=== PATIENT | male | born 1960 | race Caucasian/White ===

== ENCOUNTER → 2018-01-19 11:22 | Outpatient (CLI) | payer MEDICARE, SELFPAY ==
[2018-01-19 13:39] LABS: Bacteria Urine None Seen; RBC Urine None Seen (0-5/HPF); WBC Urine None Seen (0-5/HPF)
[2018-01-19 14:24] LABS: Appearance Urine UA CLEAR; Bilirubin Urine UA NEGATIVE (NEGATIVE); Color Urine UA YELLOW; Glucose Urine UA NEGATIVE (Normal); Ketones Urine UA NEGATIVE (NEGATIVE); Leukocyte Esterase Urine UA NEGATIVE (NEGATIVE); Nitrite Urine UA Negative (Negative); Occult Blood Urine UA NEGATIVE (Negative); Protein Urine UA 1+ (Negative); Urobilinogen Urine UA 0.2 E.U./dL (0.2); pH Urine UA 5.5 (4.5-8.0)
[2018-01-19 14:40] LABS: Culture Indicated Urine Cult Not Indicated; Urine Comments Microscopic Normal
== END ==
PROVIDERS: Family Provider Family Medicine; PCP Family Medicine; Visit Provider Internal Medicine
DX: R30.0 Dysuria (principal)
CPT/HCPCS: 81001

== ENCOUNTER → 2018-02-01 08:55 | Outpatient (CLI) | payer MEDICARE, SELFPAY ==
[2018-02-01 14:00] LABS: Creatinine Urine Random 107.2 mg/dL
[2018-02-01 14:04] LABS: Microalbumi Creatinin Ratio Ur 85.8 ug/mg CR (<30); Microalbumin Urine Random 9.2 mg/dL (0-1.6)
== END ==
PROVIDERS: Family Provider Family Medicine; PCP Family Medicine; Visit Provider Internal Medicine
DX: R30.0 Dysuria (principal)
CPT/HCPCS: 82043; 82570

== ENCOUNTER → 2018-05-22 12:09 | Outpatient (CLI) | payer MEDICARE, SELFPAY ==
[2018-05-22 12:41] LABS: Add Manual Diff / Slide Review NO; Alanine Aminotransferase 22 IU/L (21-72); Albumin 4.6 g/dL (3.5-5.0); Albumin Globulin Ratio 1.5 (1.0-2.8); Alkaline Phosphatase 65 U/L (38-126); Aspartate Aminotransferase 20 IU/L (17-59); BUN Creatinine Ratio 15.5 (6-22); Basophils Absolute Auto 100 /uL (0-100); Basophils Percent Auto 1.2 % (0-2); Bilirubin Total 0.9 mg/dL (0.2-1.3); Blood Urea Nitrogen 17 mg/dL (9-20); Calcium 9.2 mg/dL (8.4-10.2); Carbon Dioxide 26 mmol/L (22-32); Chloride 106 mmol/L (98-107); Cholesterol 169 mg/dL (140-199); Eosinophils Absolute Auto 400 /uL (0-450); Eosinophils Percent Auto 8.6 % (2-4); Estimated Glomerular Filt Rate > 60.0 mL/min (>60); Glucose 84 mg/dL (70-100); HDL Cholesterol 69 mg/dL (40-60); HEMOLYSIS < 15 (0-50); Hematocrit 40.4 % (41-53); Hemoglobin 13.3 g/dL (13.5-17.5); LDL Cholesterol Calculated 91 mg/dL (<100); Lymphocytes Absolute Auto 1500 /uL (1100-4500); Lymphocytes Percent Auto 33.9 % (25-40); Mean Corpuscular HGB Conc 33.1 % (30-36); Mean Corpuscular Hemoglobin 28.4 PG (26-34); Monocytes Absolute Auto 300 /uL (0-900); Monocytes Percent Auto 7.2 % (3-14); Neutrophils Absolute Auto 2200 /uL (1500-7000); Neutrophils Percent Auto 49.1 % (50-75); Platelet Count 223 X10^3/uL (150-400); Potassium 3.9 mmol/L (3.4-5.1); Red Blood Cell Count 4.69 X10^6/uL (4.5-5.9); Red Cell Distribution Width 13.5 % (11.6-14.8); Sodium 140 mmol/L (137-145); Total Protein 7.6 g/dL (6.3-8.2); Triglycerides 44 mg/dL (35-150); White Blood Cell Count 4.5 X10^3/uL (4.5-11.0)
[2018-05-22 13:12] LABS: Prostate Specific Antigen Scrn 0.967 ng/mL (0.1-4.0)
[2018-05-22 13:18] LABS: Thyroid Stimulating Hormone 0.71 uIU/mL (0.47-4.68)
== END ==
PROVIDERS: Family Provider Family Medicine; PCP Family Medicine; Visit Provider Family Medicine
DX: E03.9 Hypothyroidism, unspecified (principal); Z12.5 Encounter for screening for malignant neoplasm of prostate
CPT/HCPCS: 36415; 80053; 80061; 84443; 85025; G0103

== ENCOUNTER → 2018-12-07 15:15 | Outpatient (CLI) | payer MEDICARE, SELFPAY ==
[2018-12-07 16:37] LABS: Thyroid Stimulating Hormone 0.84 uIU/mL (0.47-4.68)
== END ==
PROVIDERS: Family Provider Family Medicine; PCP Family Medicine; Visit Provider Family Medicine
DX: E03.9 Hypothyroidism, unspecified (principal)
CPT/HCPCS: 36415; 84443

== ENCOUNTER → 2019-06-01 07:36 | Outpatient (CLI) | payer MEDICARE, SELFPAY ==
[2019-06-01 08:38] LABS: Blood Urea Nitrogen 17 mg/dL (9-20); Carbon Dioxide 24 mmol/L (22-32); Chloride 107 mmol/L (98-107); Estimated Glomerular Filt Rate > 60.0 mL/min (>60); Glucose 96 mg/dL (70-100); HEMOLYSIS < 15 (0-50); Potassium 3.8 mmol/L (3.4-5.1); Sodium 141 mmol/L (137-145)
[2019-06-01 09:09] LABS: Prostate Specific Antigen Scrn 1.13 ng/mL (0.1-4.0)
[2019-06-01 10:39] LABS: Thyroid Stimulating Hormone 0.46 uIU/mL (0.47-4.68)
== END ==
PROVIDERS: Family Provider Family Medicine; PCP Family Medicine; Visit Provider Family Medicine
DX: E03.9 Hypothyroidism, unspecified (principal); N40.0 Benign prostatic hyperplasia without lower urinary tract symptoms; Z12.5 Encounter for screening for malignant neoplasm of prostate
CPT/HCPCS: 36415; 80048; 84443; G0103

== ENCOUNTER → 2019-11-20 12:04 | Outpatient (CLI) | payer MEDICARE, SELFPAY ==
[2019-11-20 14:06] LABS: Thyroid Stimulating Hormone 0.512 uIU/mL (0.47-4.68)
== END ==
PROVIDERS: Family Provider Family Medicine; PCP Family Medicine; Referring Provider Family Medicine; Visit Provider Family Medicine
DX: E03.9 Hypothyroidism, unspecified (principal)
CPT/HCPCS: 36415; 84443

== ENCOUNTER → 2020-03-18 11:22 | Outpatient (CLI) | payer MEDICARE, SELFPAY ==
[2020-03-18 13:31] LABS: Thyroid Stimulating Hormone 1.47 uIU/mL (0.47-4.68)
== END ==
PROVIDERS: Family Provider Family Medicine; PCP Family Medicine; Referring Provider Family Medicine; Visit Provider Family Medicine
DX: E03.9 Hypothyroidism, unspecified (principal)
CPT/HCPCS: 36415; 84443

== ENCOUNTER → 2020-08-27 07:51 | Outpatient (CLI) | payer MEDICARE, SELFPAY ==
[2020-08-27 09:19] LABS: Add Manual Diff / Slide Review NO; Basophils Absolute Auto 0 /uL (0-100); Basophils Percent Auto 0.9 % (0-2); Eosinophils Absolute Auto 400 /uL (0-450); Eosinophils Percent Auto 8.1 % (2-4); Hematocrit 40.3 % (41-53); Hemoglobin 13.2 g/dL (13.5-17.5); Lymphocytes Absolute Auto 1200 /uL (1100-4500); Lymphocytes Percent Auto 25.3 % (25-40); Mean Corpuscular HGB Conc 32.7 % (30-36); Mean Corpuscular Hemoglobin 27.7 PG (26-34); Mean Corpuscular Volume 84.7 fL (80-100); Monocytes Absolute Auto 400 /uL (0-900); Neutrophils Absolute Auto 2600 /uL (1500-7000); Neutrophils Percent Auto 57.7 % (50-75); Platelet Count 205 X10^3/uL (150-400); Red Blood Cell Count 4.76 X10^6/uL (4.5-5.9); Red Cell Distribution Width 14.4 % (11.6-14.8); White Blood Cell Count 4.6 X10^3/uL (4.5-11.0)
[2020-08-27 09:37] LABS: Alanine Aminotransferase 12 IU/L (<50); Albumin 4.2 g/dL (3.5-5.0); Albumin Globulin Ratio 1.4 (1.0-2.8); Alkaline Phosphatase 71 U/L (38-126); Aspartate Aminotransferase 19 IU/L (17-59); BUN Creatinine Ratio 15.5 (6-22); Bilirubin Total 0.5 mg/dL (0.2-1.3); Blood Urea Nitrogen 15 mg/dL (9-20); Calcium 9.4 mg/dL (8.4-10.2); Carbon Dioxide 27 mmol/L (22-32); Chloride 107 mmol/L (98-107); Cholesterol 188 mg/dL (140-199); Estimated Glomerular Filt Rate > 60.0 mL/min (>60); Glucose 89 mg/dL (70-100); HDL Cholesterol 65 mg/dL (40-60); HEMOLYSIS < 15 (0-50); LDL Cholesterol Calculated 107 mg/dL (<100); Sodium 140 mmol/L (137-145); Total Protein 7.2 g/dL (6.3-8.2); Triglycerides 80 mg/dL (35-150)
[2020-08-27 10:04] LABS: Prostate Specific Antigen Scrn 0.796 ng/mL (0.1-4.0); TSH w/ Reflex to FT4 0.87 uIU/mL (0.47-4.68)
[2020-08-27 16:14] LABS: Creatinine Urine Random 170.2 mg/dL
[2020-08-27 16:16] LABS: Microalbumi Creatinin Ratio Ur 47.5 ug/mg CR (<30); Microalbumin Urine Random 8.1 mg/dL (0-1.6)
== END ==
PROVIDERS: Family Provider Family Medicine; PCP Family Medicine; Referring Provider Family Medicine; Visit Provider Family Medicine
DX: E03.9 Hypothyroidism, unspecified (principal); Z12.5 Encounter for screening for malignant neoplasm of prostate; N40.1 Benign prostatic hyperplasia with lower urinary tract symptoms; R35.0 Frequency of micturition; R80.9 Proteinuria, unspecified
CPT/HCPCS: 36415; 80053; 80061; 82043; 82570; 84443; 85025; G0103

== ENCOUNTER → 2021-06-01 09:46 | Outpatient (CLI) | payer MEDICARE, SELFPAY ==
[2021-06-01 10:52] LABS: Appearance Urine UA CLOUDY; Bilirubin Urine UA NEGATIVE (NEGATIVE); Color Urine UA YELLOW; Glucose Urine UA NEGATIVE (Negative); Ketones Urine UA NEGATIVE (NEGATIVE); Leukocyte Esterase Urine UA 3+ (NEGATIVE); Nitrite Urine UA NEGATIVE (Negative); Occult Blood Urine UA 1+ (Negative); Protein Urine UA NEGATIVE (Negative); Specific Gravity Urine UA <=1.005 (1.000-1.035); Urobilinogen Urine UA 0.2 E.U./dL (0.2); pH Urine UA 6.5 (4.5-8.0)
[2021-06-01 11:19] LABS: Bacteria Urine None Seen; Culture Indicated Urine Specimen Cultured; RBC Urine 1-5/HPF (0-5/HPF); Squamous Epithelial Cell Urine 0-1 /HPF (0-5/HPF); Transitional Epi Cells Urine 0-1/HPF (0-5/HPF); WBC Urine >100/HPF (0-5/HPF)
[2021-06-01 12:02] LABS: Prostate Specific Antigen Scrn 1.38 ng/mL (0.1-4.0)
== END ==
PROVIDERS: Family Provider Family Medicine; PCP Family Medicine; Referring Provider Family Medicine; Visit Provider Family Medicine
DX: Z12.5 Encounter for screening for malignant neoplasm of prostate (principal); R30.0 Dysuria
CPT/HCPCS: 36415; 81001; 87077; 87086; 87147; 87186; G0103

== ENCOUNTER → 2021-06-17 09:35 | Outpatient (CLI) | payer MEDICARE, SELFPAY ==
[2021-06-17 13:26] LABS: COVID19 -Nasal RAPID Negative (Negative)
== END ==
PROVIDERS: Family Provider Family Medicine; PCP Family Medicine; Visit Provider Family Medicine Sleep Medicine
DX: Z20.822 Contact with and (suspected) exposure to COVID-19 (principal)
CPT/HCPCS: 87635; C9803

== ENCOUNTER → 2021-06-19 10:39 | Outpatient (CLI) | payer MEDICARE, SELFPAY ==
--- NOTE | 2021-06-19 10:42 | DI.NM.S_ITS ---
PROCEDURE: NM CAMILA PERF SPECT REST & STR Rest and exercise myocardial perfusion SPECT with gated imaging and ejection fraction RADIOPHARMACEUTICAL: 9.6 mCi Tc-99m sestamibi IV at rest and 26.0 mCi Tc-99m sestamibi IV at peak exercise. A [id number] was performed. INDICATIONS: Intermittent chest pain TECHNIQUE: Radiopharmaceutical was injected at peak stress test, and also at rest. SPECT images were obtained. SPECT myocardial perfusion images were displayed in short axis, horizontal long axis, and vertical long axis views. Gated images were reviewed using Yogi[employer] software. COMPARISON: None. CARDIAC STRESS: A standard Brandan treadmill exercise tolerance test was performed by the patient under the supervision of an attending staff. The patient exercised for 6 minutes and 03 seconds; 7.0 METS; functional aerobic impairment (ALEXA) is +25%. Hemodynamic data: There is normal blood pressure and heart rate response to exercise stress. Patient achieved 85% of maximum predicted heart rate at peak exercise. Symptoms: Patient denied chest pain during exercise. EKG: Resting ECG with sinus rhythm, LVH, diffuse ST wave abnormality. Stress ECG sinus tachycardia, LVH, worsening of the baseline ST abnormality. No ectopy or arrhythmia. FINDINGS: Raw data: There is good myocardial labeling by radiotracer. No significant motion artifacts. Hlll-an-kxjuk ratio is 0.38 (normal is less than 0.38 for sestamibi tracer, and less than 0.50 for thallium tracer). Left ventricle function: Gated images demonstrate normal left ventricle wall thickening. No segmental wall motion abnormality. No transient ischemic dilation; TID is 0.95 (normal less than 1.3). The left ventricle resting end-diastolic volume is 367 mL. Left ventricle stress ejection fraction is 20%; normal values are above 45%. There is global hypokinesis, worse in the inferior and septal casas. Myocardial perfusion: There is a large size, mild intensity fixed inferior wall defect. There is also a small to medium size, severe intensity fixed mid to distal septal and apical septal defect. IMPRESSION: No evidence of exercise-induced ischemia on SPECT images. 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 Stress ECG with baseline ST abnormalities that worsen with exercise but are nondiagnostic. Dilated left ventricle with an LV EDV of 367 mL. Severely reduced ejection fraction, calculated at 20%. Reduced exercise capacity. Dictated by: Raissa Young D.O. on 06/19/2021 at 15:47 Approved by: Raissa Young M.D. on 06/19/2021 at 16:03
--- NOTE | 2021-06-19 14:38 | PM.TREADMILL ---
Cardiac Stress Test Report Referral & Results Date Patient Seen: 06/19/21 Requesting provider: Enoc Tavares Indication: Chest discomfort Rest ECG: Widespread ST-T segment changes with T-wave inversions in some places as well as a nonspecific interventricular conduction delay Procedure Note: Today following both written and verbal informed consent the patient was exercised according to a standard Brandan protocol patient went for a total of 6 minutes 3 seconds achieving a maximum heart rate of 138 maximum systolic blood pressure of 160. This is approximately 7.0 METS. Exercise was terminated at this point because of patient was unable to go any faster targets were met Patient was also given Cardiolite through a previously started Hep-Lock IV by the diagnostic imaging staff approximately 1 minute prior to the cessation of exercise. With exercise patient's ST segment changes were a bit exaggerated but no obvious ischemic changes. Rare PVC including ventricular couplets Function aerobic impairment rates about 25% on the sedentary scale Impression: No obvious evidence of ischemia based on usual ECG criteria, although underlying baseline abnormalities may mask some degree of ischemia Please see perfusion imaging report as well Limited exercise capacity as above Please note: Actual ECG tracings can be found in the PACS system.
== END ==
PROVIDERS: Family Provider Family Medicine; PCP Family Medicine; Referring Provider Family Medicine; Visit Provider Family Medicine
DX: R07.89 Other chest pain (principal)
CPT/HCPCS: 78452; 93016; 93017; 93018; A9502

== ENCOUNTER → 2021-07-06 11:02 | Outpatient (CLI) | payer MEDICARE, SELFPAY ==
[2021-07-06 13:46] LABS: Add Manual Diff / Slide Review NO; Basophils Absolute Auto 0 /uL (0-100); Basophils Percent Auto 0.5 % (0-2); Eosinophils Absolute Auto 300 /uL (0-450); Eosinophils Percent Auto 4.7 % (2-4); Hematocrit 40.9 % (41-53); Hemoglobin 13.2 g/dL (13.5-17.5); Lymphocytes Absolute Auto 1200 /uL (1100-4500); Lymphocytes Percent Auto 19.7 % (25-40); Mean Corpuscular HGB Conc 32.3 % (30-36); Mean Corpuscular Hemoglobin 27.2 PG (26-34); Mean Corpuscular Volume 84.2 fL (80-100); Monocytes Absolute Auto 400 /uL (0-900); Monocytes Percent Auto 6.8 % (3-14); Neutrophils Absolute Auto 4300 /uL (1500-7000); Neutrophils Percent Auto 68.3 % (50-75); Platelet Count 226 X10^3/uL (150-400); Red Blood Cell Count 4.85 X10^6/uL (4.5-5.9); Red Cell Distribution Width 14.4 % (11.6-14.8); White Blood Cell Count 6.3 X10^3/uL (4.5-11.0)
[2021-07-06 13:58] LABS: Hemoglobin A1C% w Est Avg Glu 5.3 % (4.0-6.0)
[2021-07-06 14:24] LABS: BUN Creatinine Ratio 16.8 (6-22); Blood Urea Nitrogen 19 mg/dL (9-20); Carbon Dioxide 28 mmol/L (22-32); Chloride 104 mmol/L (98-107); Cholesterol 201 mg/dL (140-199); Estimated Glomerular Filt Rate > 60.0 mL/min (>60); Glucose 89 mg/dL (70-100); HDL Cholesterol 80 mg/dL (40-60); HEMOLYSIS < 15 (0-50); LDL Cholesterol Calculated 101 mg/dL (<100); Sodium 137 mmol/L (137-145); Triglycerides 102 mg/dL (35-150)
== END ==
PROVIDERS: Family Provider Family Medicine; PCP Family Medicine; Referring Provider Internal Medicine; Visit Provider Internal Medicine
DX: I42.0 Dilated cardiomyopathy (principal); I21.A9 Other myocardial infarction type; I25.119 Atherosclerotic heart disease of native coronary artery with unspecified angina pectoris
CPT/HCPCS: 36415; 80048; 80061; 83036; 85025

== ENCOUNTER → 2021-08-17 06:17 | Outpatient (CLI) | payer MEDICARE, SELFPAY ==
--- NOTE | 2021-08-17 06:19 | DI.ECHO.S_ITS ---
[facility] +---------+ : : [address] [place] : : : : [id number] : : : : Phone: [phone]+ Echocardiogram Report + + :Name: SARITA GERMAIN SR Study Date: 08/17/2021 Height: 73 in : :[facility] ReadingLocation: Weight: 154 lb : : Gender: Male BSA: 1.9 m2 : :: 1960 Age: 60 yrs BP: 101/55 mmHg: :Reason For Study: Cardiomyopathy, Dilated : :Ordering Physician: RICK, : :MERYL Performed By: Sekou Burns : :Referring: MERYL CABRERA : + + Interpretation Summary Normal sinus rhythm with wide QRS complexes. Severely dilated LV with end-diastolic dimension of 7.3 cm. Normal wall thickness; severely reduced LV systolic function with global hypokinesis. EF is estimated at 20-25%. Stage I diastolic dysfunction. Severe LA enlargement; otherwise normal chamber sizes. Moderately dilated aortic root (4.3 cm diameter) with mild associated AI. Otherwise no significant valvular abnormalities. No prior study available for comparison. Procedure: A two-dimensional transthoracic echocardiogram with color flow and Doppler was performed. The study quality was technically adequate. There is no prior echocardiogram noted for this patient. Left Ventricle: The left ventricle is severely dilated. There is normal left ventricular wall thickness. Left ventricular systolic function is severely reduced. The ejection fraction is estimated to be 20-25%. There is severe global hypokinesis of the left ventricle. Diastolic parameters suggest a relaxation abnormality of the left ventricle, consistent with probable normal filling pressures. Right Ventricle: The right ventricle is normal in size and function. Atria: The left atrium is moderately dilated. Right atrial size is normal. The interatrial septum grossly appears intact with no obvious evidence for an atrial septal defect. Mitral Valve: The mitral valve is normal in structure and function. There is trace mitral regurgitation. Aortic Valve: The aortic valve is normal in structure and function. There is mild aortic regurgitation. Tricuspid Valve: The tricuspid valve is normal in structure and function. There is a trace or physiologic amount of tricuspid regurgitation. Pulmonary artery pressures cannot be estimated because of the lack of a measurable TR jet velocity. Pulmonic Valve: The pulmonic valve is normal in structure and function. There is mild pulmonic regurgitation. Great Vessels: The aortic root is moderately dilated. The ascending aorta could not be visualized. The IVC is of normal diameter and collapses greater than 50% with a sniff. This suggests a low right atrial pressure of 3 mm Hg. Pericardium/ Pleura There is no pericardial effusion. MMode/2D Measurements & Calculations LVIDd: 7.3 cm LVOT diam: 2.6 cm LVIDs: 6.3 cm Ao root diam: 4.5 cm FS: 13.7 % IVSd: 1.1 cm LVPWd: 1.2 cm LV brody. diameter/BSA (cm/m^2): 3.8 LV sys. diameter/BSA (cm/m^2): 3.3 LA dimension: 3.6 cm RA long axis: 5.0 cm LA A2 area: 21.0 cm2 LA A4 area: 25.8 cm2 LA length (vol): 5.1 cm LA vol: 90.2 ml LA vol index: 46.8 ml/m2 LVLs ap4: 8.5 cm LVLd ap2: 8.5 cm LVLs ap2: 8.0 cm TAPSE_phl: 1.8 cm Doppler Measurements & Calculations Ao V2 max: 104.0 cm/sec LVOT Max Rajat: 73.1 cm/sec Ao V2 mean: 74.8 cm/sec LV V1 max P.1 mmHg Ao max P.0 mmHg LV V1 VTI: 14.5 cm Ao mean P.0 mmHg RAMON(I,D): 3.7 cm2 Ao V2 VTI: 20.7 cm RAMON(V,D): 3.7 cm2 sev ratio: 0.70 RAMON indexed to BSA (cm^2/m^2): 1.9 MV E max rajat: 39.4 cm/sec SV(LVOT): 77.0 ml MV A max rajat: 51.4 cm/sec MV E/A: 0.77 Med Peak E' Rajat: 5.3 cm/sec E/E' med: 7.4 Lat Peak E' Rajat: 2.4 cm/sec E/E' lat: 16.3 E/e' average: 11.8 MV dec time: 0.29 sec AV VR_phl: 0.70 MV P1/2t-pr_phl: 84.0 msec RAMON(VTI)/BSA_phl: 1.9 Electronically signed by: Elsi Angel M.D. on Reading Physician:08/18/2021 12:39 AM
== END ==
PROVIDERS: Family Provider Family Medicine; PCP Family Medicine; Referring Provider Family Medicine; Visit Provider Family Medicine
DX: I35.1 Nonrheumatic aortic (valve) insufficiency (principal); I37.1 Nonrheumatic pulmonary valve insufficiency; I77.810 Thoracic aortic ectasia; I42.0 Dilated cardiomyopathy; R00.2 Palpitations
CPT/HCPCS: 93306

== ENCOUNTER → 2022-02-09 08:54 | Outpatient (CLI) | payer MEDICARE, SELFPAY ==
[2022-02-09 10:40] LABS: BUN Creatinine Ratio 13.8 (6-22); Blood Urea Nitrogen 18 mg/dL (9-20); Calcium 9.2 mg/dL (8.4-10.2); Carbon Dioxide 28 mmol/L (22-32); Chloride 103 mmol/L (98-107); Estimated Glomerular Filt Rate > 60 mL/min (>60); Glucose 77 mg/dL (70-100); HEMOLYSIS < 15 (0-50); Potassium 4.4 mmol/L (3.4-5.1); Sodium 139 mmol/L (137-145)
== END ==
PROVIDERS: Family Provider Family Medicine; PCP Family Medicine; Referring Provider Internal Medicine; Visit Provider Internal Medicine
DX: I50.22 Chronic systolic (congestive) heart failure (principal)
CPT/HCPCS: 36415; 80048

== ENCOUNTER → 2022-02-15 07:09 | Outpatient (CLI) | payer MEDICARE, SELFPAY ==
--- NOTE | 2022-02-15 | DI.ECHO.S_ITS ---
[facility] +---------+ : : [address] : [place] : : : : [id number] : : : : Phone: [phone]+ Echocardiogram Report + + :Name: SARITA GERMAIN SR Study Date: 02/15/2022 Height: 73 in : :[facility] ReadingLocation: Weight: 146 lb : : Gender: Male BSA: 1.9 m2 : :: 1960 Age: 61 yrs BP: 115/64 mmHg: :Reason For Study: Congestive Heart Failure : :Ordering Physician: TIERRA, : :JASMINE Performed By: Sekou Burns : :Referring: JASMINE MAYORGA : + + Interpretation Summary The left ventricle is severely dilated. Left ventricular ejection fraction is estimated to be 20 +/- 5%. There is severe global hypokinesis of the left ventricle. The right ventricle is normal in size and function. Pulmonary artery pressures cannot be estimated because of the lack of a measurable TR jet velocity. Ascending aorta diameter is 4.9cm- Increased from 4.3cm in 07/2021 No significant valvular disease. Procedure: A two-dimensional transthoracic echocardiogram with color flow and Doppler was performed. The study quality was technically adequate. Comparison is made with the echocardiogram of 08/17/2021. Left Ventricle: The left ventricle is severely dilated. There is normal left ventricular wall thickness. Left ventricular systolic function is severely reduced. Left ventricular ejection fraction is estimated to be 20 +/- 5%. There is severe global hypokinesis of the left ventricle. Grade I diastolic dysfunction. Right Ventricle: The right ventricle is normal in size and function. Atria: The left atrium is severely dilated. Right atrial size is normal. The interatrial septum grossly appears intact with no obvious evidence for an atrial septal defect. Mitral Valve: The mitral valve is normal in structure and function. There is trace mitral regurgitation. Aortic Valve: The aortic valve is normal in structure and function. There is no aortic valve stenosis. There is trace aortic regurgitation. Tricuspid Valve: The tricuspid valve is normal in structure and function. No tricuspid regurgitation. Pulmonary artery pressures cannot be estimated because of the lack of a measurable TR jet velocity. Pulmonic Valve: The pulmonic valve is not well seen, but is grossly normal. There is no pulmonic valvular regurgitation. Great Vessels: The aortic root is moderately dilated. The ascending aorta is severely enlarged. The IVC is of normal diameter and collapses greater than 50% with a sniff. This suggests a low right atrial pressure of 3 mm Hg. Pericardium/ Pleura There is no pericardial effusion. MMode/2D Measurements & Calculations LVIDd: 7.7 cm LVOT diam: 2.5 cm LVIDs: 6.8 cm Ao root diam: 4.6 cm FS: 11.7 % asc Aorta Diam: 4.9 cm IVSd: 0.90 cm LVPWd: 0.80 cm LV brody. diameter/BSA (cm/m^2): 4.1 LV sys. diameter/BSA (cm/m^2): 3.6 LA dimension: 3.5 cm RA long axis: 4.0 cm LA A2 area: 21.2 cm2 LA A4 area: 22.4 cm2 LA length (vol): 4.7 cm LA vol: 85.2 ml LA vol index: 45.3 ml/m2 LVLs ap4: 8.5 cm LVLd ap2: 9.0 cm LVLs ap2: 8.4 cm TAPSE_phl: 2.9 cm Doppler Measurements & Calculations Ao V2 max: 102.0 cm/sec LVOT Max Rajat: 60.7 cm/sec Ao V2 mean: 74.5 cm/sec LV V1 max P.5 mmHg Ao max P.0 mmHg LV V1 VTI: 11.9 cm Ao mean P.0 mmHg RAMON(I,D): 2.9 cm2 Ao V2 VTI: 19.9 cm RAMON(V,D): 2.9 cm2 sev ratio: 0.60 RAMON indexed to BSA (cm^2/m^2): 1.6 MV E max rajat: 38.1 cm/sec SV(LVOT): 58.4 ml MV A max rajat: 49.7 cm/sec MV E/A: 0.77 Med Peak E' Rajat: 4.2 cm/sec E/E' med: 9.2 Lat Peak E' Rajat: 7.2 cm/sec E/E' lat: 5.3 E/e' average: 7.2 MV dec time: 0.20 sec AV VR_phl: 0.60 MV P1/2t-pr_phl: 58.0 msec RAMON(VTI)/BSA_phl: 1.6 Reading Physician:ALYCE
== END ==
PROVIDERS: Family Provider Family Medicine; PCP Family Medicine; Referring Provider Family Medicine; Visit Provider Internal Medicine
DX: I50.22 Chronic systolic (congestive) heart failure (principal); I77.89 Other specified disorders of arteries and arterioles; I77.810 Thoracic aortic ectasia
CPT/HCPCS: 93306

== ENCOUNTER → 2022-03-11 10:22 | Outpatient (CLI) | payer MEDICARE, SELFPAY ==
[2022-03-11 12:33] LABS: Add Manual Diff / Slide Review NO; Basophils Absolute Auto 0 /uL (0-100); Basophils Percent Auto 0.7 % (0-2); Eosinophils Absolute Auto 300 /uL (0-450); Hematocrit 38.3 % (41-53); Hemoglobin 12.8 g/dL (13.5-17.5); Lymphocytes Absolute Auto 1000 /uL (1100-4500); Lymphocytes Percent Auto 17.2 % (25-40); Mean Corpuscular HGB Conc 33.5 % (30-36); Mean Corpuscular Hemoglobin 28.7 PG (26-34); Mean Corpuscular Volume 85.5 fL (80-100); Monocytes Absolute Auto 400 /uL (0-900); Monocytes Percent Auto 6.6 % (3-14); Neutrophils Absolute Auto 4300 /uL (1500-7000); Neutrophils Percent Auto 70.5 % (50-75); Platelet Count 245 X10^3/uL (150-400); Red Blood Cell Count 4.48 X10^6/uL (4.5-5.9); Red Cell Distribution Width 14.7 % (11.6-14.8); White Blood Cell Count 6.1 X10^3/uL (4.5-11.0)
[2022-03-11 14:02] LABS: Alanine Aminotransferase 23 IU/L (<50); Albumin 4.2 g/dL (3.5-5.0); Albumin Globulin Ratio 1.4 (1.0-2.8); Alkaline Phosphatase 74 U/L (38-126); Aspartate Aminotransferase 20 IU/L (17-59); BUN Creatinine Ratio 14.2 (6-22); Bilirubin Total 0.5 mg/dL (0.2-1.3); Blood Urea Nitrogen 17 mg/dL (9-20); Calcium 8.8 mg/dL (8.4-10.2); Carbon Dioxide 29 mmol/L (22-32); Chloride 103 mmol/L (98-107); Cholesterol 186 mg/dL (140-199); Estimated Glomerular Filt Rate > 60 mL/min (>60); Glucose 76 mg/dL (70-100); HDL Cholesterol 66 mg/dL (40-60); HEMOLYSIS < 15 (0-50); LDL Cholesterol Calculated 101 mg/dL (<100); Potassium 4.3 mmol/L (3.4-5.1); Sodium 139 mmol/L (137-145); Total Protein 7.2 g/dL (6.3-8.2); Triglycerides 96 mg/dL (35-150)
[2022-03-11 14:29] LABS: TSH w/ Reflex to FT4 1.04 uIU/mL (0.47-4.68)
[2022-03-11 16:16] LABS: Microalbumi Creatinin Ratio Ur 72.1 ug/mg CR (<30); Microalbumin Urine Random 8.8 mg/dL (0-1.6)
== END ==
PROVIDERS: Family Provider Family Medicine; PCP Family Medicine; Referring Provider Family Medicine; Visit Provider Family Medicine
DX: D64.9 Anemia, unspecified (principal); E03.9 Hypothyroidism, unspecified; L40.9 Psoriasis, unspecified; R00.2 Palpitations; R07.89 Other chest pain
CPT/HCPCS: 36415; 80053; 80061; 82043; 82570; 84443; 85025

== ENCOUNTER → 2022-03-15 14:35 | Outpatient (CLI) | payer MEDICARE, SELFPAY ==
[2022-03-15 16:03] LABS: BUN Creatinine Ratio 17.2 (6-22); Blood Urea Nitrogen 23 mg/dL (9-20); Calcium 9.2 mg/dL (8.4-10.2); Carbon Dioxide 26 mmol/L (22-32); Chloride 103 mmol/L (98-107); Estimated Glomerular Filt Rate > 60 mL/min (>60); Glucose 97 mg/dL (70-100); HEMOLYSIS < 15 (0-50); Magnesium 1.9 mg/dL (1.6-2.3); Potassium 4.3 mmol/L (3.4-5.1); Sodium 139 mmol/L (137-145)
[2022-03-15 16:32] LABS: Thyroid Stimulating Hormone 1.68 uIU/mL (0.47-4.68)
== END ==
PROVIDERS: Family Provider Family Medicine; PCP Family Medicine; Referring Provider Internal Medicine; Visit Provider Internal Medicine
DX: I42.8 Other cardiomyopathies (principal); E03.9 Hypothyroidism, unspecified
CPT/HCPCS: 36415; 80048; 83735; 84443

== ENCOUNTER → 2022-05-24 09:18 | Outpatient (CLI) | payer MEDICARE, SELFPAY ==
[2022-05-24 10:55] LABS: Add Manual Diff / Slide Review NO; Basophils Absolute Auto 0 /uL (0-100); Basophils Percent Auto 0.7 % (0-2); Eosinophils Absolute Auto 200 /uL (0-450); Eosinophils Percent Auto 3.8 % (2-4); Hematocrit 39.3 % (41-53); Hemoglobin 13.1 g/dL (13.5-17.5); Lymphocytes Absolute Auto 1100 /uL (1100-4500); Lymphocytes Percent Auto 21.8 % (25-40); Mean Corpuscular HGB Conc 33.4 % (30-36); Mean Corpuscular Hemoglobin 28.7 PG (26-34); Mean Corpuscular Volume 85.9 fL (80-100); Monocytes Absolute Auto 400 /uL (0-900); Monocytes Percent Auto 7.3 % (3-14); Neutrophils Absolute Auto 3400 /uL (1500-7000); Neutrophils Percent Auto 66.4 % (50-75); Platelet Count 210 X10^3/uL (150-400); Red Blood Cell Count 4.58 X10^6/uL (4.5-5.9); Red Cell Distribution Width 13.5 % (11.6-14.8); White Blood Cell Count 5.1 X10^3/uL (4.5-11.0)
[2022-05-24 11:22] LABS: HEMOLYSIS < 15 (0-50); Iron 103 ug/dL (49-181)
[2022-05-24 11:30] LABS: Transferrin 268 mg/dL (206-381)
[2022-05-24 11:42] LABS: Ferritin 47 ng/mL (18-464)
[2022-05-24 11:54] LABS: TSH w/ Reflex to FT4 1.12 uIU/mL (0.47-4.68)
[2022-05-26 14:57] LABS: Percent Iron Saturation 27 % (20-50); Total Iron Binding Capacity 375 ug/dL (261-462)
== END ==
PROVIDERS: Family Provider Family Medicine; PCP Family Medicine; Referring Provider Family Medicine; Visit Provider Family Medicine
DX: D64.9 Anemia, unspecified (principal); E03.9 Hypothyroidism, unspecified; F32.9 Major depressive disorder, single episode, unspecified; I42.0 Dilated cardiomyopathy; I77.819 Aortic ectasia, unspecified site
CPT/HCPCS: 36415; 82728; 83540; 83550; 84443; 85025

== ENCOUNTER → 2022-08-09 09:30 | Outpatient (CLI) | payer MEDICARE, SELFPAY ==
[2022-08-09 10:24] LABS: Add Manual Diff / Slide Review NO; Basophils Absolute Auto 0 /uL (0-100); Basophils Percent Auto 0.7 % (0-2); Eosinophils Absolute Auto 300 /uL (0-450); Eosinophils Percent Auto 6.1 % (2-4); Hematocrit 38.5 % (41-53); Hemoglobin 12.9 g/dL (13.5-17.5); Lymphocytes Absolute Auto 1400 /uL (1100-4500); Lymphocytes Percent Auto 25.6 % (25-40); Mean Corpuscular HGB Conc 33.5 % (30-36); Mean Corpuscular Hemoglobin 28.5 PG (26-34); Monocytes Absolute Auto 500 /uL (0-900); Monocytes Percent Auto 8.9 % (3-14); Neutrophils Absolute Auto 3300 /uL (1500-7000); Neutrophils Percent Auto 58.7 % (50-75); Platelet Count 211 X10^3/uL (150-400); Red Blood Cell Count 4.53 X10^6/uL (4.5-5.9); Red Cell Distribution Width 14.1 % (11.6-14.8); White Blood Cell Count 5.6 X10^3/uL (4.5-11.0)
[2022-08-09 11:08] LABS: BUN Creatinine Ratio 16.9 (6-22); Blood Urea Nitrogen 21 mg/dL (9-20); Calcium 9.4 mg/dL (8.4-10.2); Carbon Dioxide 29 mmol/L (22-32); Chloride 102 mmol/L (98-107); Estimated Glomerular Filt Rate > 60 mL/min (>60); Glucose 77 mg/dL (70-100); HEMOLYSIS < 15 (0-50); Potassium 4.5 mmol/L (3.4-5.1); Sodium 137 mmol/L (137-145)
== END ==
PROVIDERS: Family Provider Family Medicine; PCP Family Medicine; Referring Provider Physician Assistant Medical; Visit Provider Physician Assistant Medical
DX: I42.8 Other cardiomyopathies (principal)
CPT/HCPCS: 36415; 80048; 85025

== ENCOUNTER 2022-08-17 11:17 | Emergency (ER) | payer MEDICARE, SELFPAY ==
[2022-08-17 11:22] VITALS: BP 124/72; PULSE 84; RESP 18; TEMP 36.4; O2SAT 97; BMI 19.9
[2022-08-17] MEDS: LIDOCAINE 2% (GLYDO) 6 ML GEL TOP (12:15)
--- NOTE | 2022-08-17 12:33 | PC.NURSE ---
Pt had defibrillator put in yesterday. Pt did not have a catheter yesterday. Pt having urinary retention today,burning and small amounts of urine output prior to arrival
[2022-08-17 13:02] LABS: Bacteria Urine None Seen; Culture Indicated Urine Cult Not Indicated; RBC Urine 0-1/HPF (0-5/HPF); Squamous Epithelial Cell Urine 0-1 /HPF (0-5/HPF); WBC Urine 30-100/HPF (0-5/HPF)
[2022-08-17 14:20] VITALS: BP 106/58; PULSE 74; RESP 18; O2SAT 95
--- NOTE | 2022-08-17 14:39 | ED.MALEGU ---
HPI - Male Genitourinary <Elly Blackmon PA-C - Last Filed: 08/17/22 14:47> General Chief complaint: Urogenital-Male Stated complaint: post op T-1 trouble urinating Time Seen by Provider: 08/17/22 12:22 Source: patient Mode of arrival: Ambulatory History of Present Illness HPI Narrative: 61-year-old male with past medical history hypothyroidism, BPH, dilated cardiomyopathy, aortic dilation, depression presents to the ED with 2 days of inability to urinate. Patient had a cardiac procedure where he had a AICD put in yesterday morning, following which he states that he has been having difficulty urinating. Patient denies fever, chills, chest pain, shortness of breath, nausea, vomiting, abdominal pain, flank pain, dysuria, lightheadedness, dizziness, syncope. Patient states that he has a history of BPH, however has never had to go home with a catheter in place. Patient takes Flomax for BPH. Related Data Home Medications Medication Instructions Recorded Confirmed citalopram 20 mg tablet mg 08/17/22 doxycycline hyclate 100 mg capsule 100 mg PO DAILY 08/17/22 08/17/22 Previous Rx's Medication Instructions Recorded bupropion HCl 150 mg 24 hr tablet, 450 mg PO DAILY #270 tabs 02/08/22 extended release (Wellbutrin XL) citalopram 20 mg tablet (Celexa) 60 mg PO QDAY #270 tabs 02/08/22 metoprolol succinate 25 mg 25 mg PO DAILY #90 tabs 02/08/22 tablet,extended release 24 hr tamsulosin 0.4 mg capsule (Flomax) 0.4 mg PO DAILY #90 caps 02/08/22 enalapril maleate 2.5 mg tablet See Rx Instructions .Route 03/16/22 .COMPLEX #120 tabs lorazepam 0.5 mg tablet (Ativan) 0.5 mg PO BID PRN anxiety #60 tabs 07/15/22 sulfamethoxazole 800 1 tab PO BID 14 days #28 tabs 08/17/22 mg-trimethoprim 160 mg tablet (Bactrim DS) Allergies Allergy/AdvReac Type Severity Reaction Status Date / Time Penicillins Allergy Unknown Verified 05/25/22 08:00 morphine AdvReac Mild SEVERE Verified 05/25/22 08:00 NAUSEA Review of Systems <Elly Blackmon PA-C - Last Filed: 08/17/22 14:47> Review of Systems ROS Unobtainable: All systems reviewed & are unremarkable except as noted in HPI and below Constitutional Constitutional: Denies chills, Denies fatigue, Denies fever(s), Denies frequent falls, Denies lethargy and Denies weakness Eyes Eyes: Denies change in vision, Denies eye discharge, Denies irritation and Denies loss of vision ENT Ears, Nose, Mouth, and Throat: Denies change in voice, Denies dizziness, Denies neck pain, Denies sore throat and Denies throat swelling Cardiovascular Cardiovascular: Denies chest pain, Denies irregular heart rhythm, Denies lightheadedness, Denies palpitations, Denies dyspnea, Denies dyspnea on exertion and Denies orthopnea Respiratory Respiratory: Denies cough, Denies dyspnea, Denies dyspnea on exertion and Denies wheezing Gastrointestinal Gastrointestinal: Denies abdominal pain, Denies change in bowel habits, Denies diarrhea, Denies nausea and Denies vomiting Genitourinary Genitourinary: Denies hematuria, Reports oliguria, Reports difficulty urinating, Denies flank pain, Denies urinary incontinence and Denies urinary urgency Musculoskeletal Musculoskeletal: Denies back pain, Denies muscle weakness, Denies neck pain, Denies numbness and Denies tingling Integumentary/Breasts Skin/Breast: Denies pruritus, Denies erythema, Denies rash and Denies wounds Neurologic Neurologic: Denies behavioral changes, Denies confusion, Denies dizziness, Denies frequent falls, Denies loss of vision, Denies numbness, Denies tingling and Denies weakness Psychiatric Psychiatric: Denies anxiety, Denies behavioral changes, Denies confusion, Denies depression, Denies homicidal ideation and Denies suicidal ideation Endocrine Endocrine: Denies fatigue, Denies flushing and Denies palpitations Hematologic/Lymphatic Hematologic/Lymphatic: Denies easy bruising Allergic/Immunologic Allergic/Immunologic: Denies urticaria, Denies throat swelling and Denies wheezing Patient History <Elly Blackmon PA-C - Last Filed: 08/17/22 14:47> Medical History Anemia Chest discomfort Dilatation of aorta Dilated cardiomyopathy Dysuria Eczema (2012) Microalbuminuria Palpitations Surgical History Anesthesia History of dental surgery (2013) History of thyroid surgery (~2008) Family History Mother Age: 80 Pacemaker Father No problems noted. Grandfather No problems noted. Social History Smoking Status: Never smoker Smoking Status: Never smoker alcohol intake frequency: other Substance Use Type: does not use Exam <Elly Blackmon PA-C - Last Filed: 08/17/22 14:47> Narrative Exam Narrative: Const General:?cooperative, healthy appearing and comfortable HENMT Head:?normal to inspection Ears:?hearing grossly normal bilaterally Nose:?external nose normal Face and sinus:?normal facial exam and sinuses nontender Mouth:?oral mucosae normal Throat:?posterior oropharynx normal Eyes General:?appearance normal, both eyes and all related structures Neck Neck:?normal visual inspection and no lymphadenopathy noted Resp Effort & Inspection:?normal respiratory effort Auscultation:?clear to auscultation bilaterally Cardio Rate:?regular rate Rhythm:?regular rhythm GI Abdomen is soft, nondistended, nontender to palpation. There is no CVA tenderness. Neuro General:?patient alert, patient awake and patient oriented x3 Initial Vital Signs Initial Vital Signs: Vital Signs Temperature 97.6 F 08/17/22 11:22 Pulse Rate 84 08/17/22 11:22 Respiratory Rate 18 08/17/22 11:22 Blood Pressure 124/72 08/17/22 11:22 Pulse Oximetry 97 08/17/22 11:22 Oxygen Delivery Method Room Air 08/17/22 11:22 <Stephen Vences DO - Last Filed: 08/17/22 15:34> Initial Vital Signs Initial Vital Signs: Vital Signs Temperature 97.6 F 08/17/22 11:22 Pulse Rate 84 08/17/22 11:22 Respiratory Rate 18 08/17/22 11:22 Blood Pressure 124/72 08/17/22 11:22 Pulse Oximetry 97 08/17/22 11:22 Oxygen Delivery Method Room Air 08/17/22 11:22 Course <Elly Blackmon PA-C - Last Filed: 08/17/22 14:47> Orders Ordered: ED Orders 08/17/22 12:27 Urine Culture Stat Urine Microscopic Stat Discontinued Medications Lidocaine HCl (Lidocaine 2% (Glydo) 6 Ml Gel) 6 ml TOP NOW ONE Stop: 08/17/22 12:13 Last Admin: 08/17/22 12:15 Dose: 6 ml Documented By: HAMLET Vital Signs Vital signs: Vital Signs - 8 hr 08/17/22 11:22 08/17/22 14:20 Temperature 97.6 F Pulse Rate 84 74 Respiratory Rate 18 18 Blood Pressure 124/72 106/58 L Pulse Oximetry 97 95 Oxygen Delivery Method Room Air Room Air <Stephen Vences DO - Last Filed: 08/17/22 15:34> Orders Ordered: ED Orders 08/17/22 12:27 Urine Culture Stat Urine Microscopic Stat Discontinued Medications Lidocaine HCl (Lidocaine 2% (Glydo) 6 Ml Gel) 6 ml TOP NOW ONE Stop: 08/17/22 12:13 Last Admin: 08/17/22 12:15 Dose: 6 ml Documented By: HAMLET Vital Signs Vital signs: Vital Signs - 8 hr 08/17/22 11:22 08/17/22 14:20 Temperature 97.6 F Pulse Rate 84 74 Respiratory Rate 18 18 Blood Pressure 124/72 106/58 L Pulse Oximetry 97 95 Oxygen Delivery Method Room Air Room Air MDM - Male Genitourinary <Elly Blackmon PA-C - Last Filed: 08/17/22 14:47> Lab Data Labs: Lab Results 08/17/22 Range/Units 12:27 Urine RBC 0-1/hpf (0-5/HPF) Urine WBC 30-100/hpf H (0-5/HPF) Ur Squamous Epith Cells 0-1 /hpf (0-5/HPF) Urine Bacteria None seen (None) Ur Culture Indicated? Cult not indicated Urine Dip Bedside Urine Glucose Negative Bedside Urine Bilirubin - Negative Bedside Urine Ketone - Negative Urine Specific [place] 1.015 Bedside Urine Occult Blood +/- Bedside Urine pH 6.5 Bedside Urine Protein - Negative Bedside Urine Urobilinogen - Negative Bedside Urine Nitrite - Negative Bedside Urine Leukocytes ++ 125 Esterase MDM Narrative Medical decision making narrative: 61-year-old male with past medical history hypothyroidism, BPH, dilated cardiomyopathy, aortic dilation, depression presents to the ED with 2 days of inability to urinate. Concern for urinary retention versus UTI versus other. Obtained UA which was positive for UTI. Bladder scan shows 128514 mL of retained urine. Urinary catheter was placed, following which 1200 mL of clear urine was drained. Patient was started on doxycycline 100 mg once a day for 7 days status post yesterday's cardiac procedure. Will start patient today on Bactrim in addition to the doxycycline for the UTI. Will discharge patient home with a Jones catheter in place, with education on managing the catheter. Patient agrees to follow-up with urology as soon as possible for further evaluation. ED return precautions were discussed with patient. Patient verbalized understanding. Medical records reviewed: Yes <Stephen Ru, DO - Last Filed: 08/17/22 15:34> Lab Data Labs: Lab Results 08/17/22 Range/Units 12:27 Urine RBC 0-1/hpf (0-5/HPF) Urine WBC 30-100/hpf H (0-5/HPF) Ur Squamous Epith Cells 0-1 /hpf (0-5/HPF) Urine Bacteria None seen (None) Ur Culture Indicated? Cult not indicated Urine Dip Bedside Urine Glucose Negative Bedside Urine Bilirubin - Negative Bedside Urine Ketone - Negative Urine Specific [place] 1.015 Bedside Urine Occult Blood +/- Bedside Urine pH 6.5 Bedside Urine Protein - Negative Bedside Urine Urobilinogen - Negative Bedside Urine Nitrite - Negative Bedside Urine Leukocytes ++ 125 Esterase Discharge Plan Departure Patient Disposition: Home Clinical Impression: Acute UTI, Acute urinary retention Instructions: DI for Urinary Tract Infection (UTI), DI for Urinary Retention in Men Activity Restrictions/Additional Instructions: You were evaluated in the ED today for urinary retention. It appears that you were unable to urinate, you were catheterized in the ED, subsequently draining 1200 mL of urine, which is significant. Given that you might continue to have troubles urinating at home, you are being sent home with the urinary catheter in place. Your urine was also positive for a urinary tract infection, for which you are being prescribed the antibiotic Bactrim. Please take this antibiotic Bactrim in addition to the doxycycline that your web site project manager has prescribed. Please also follow-up with [facility] by calling [phone], for further evaluation and treatment. Return to the ED if you continue to have urinary issues, fevers, chills, persistent vomiting, chest pain, shortness of breath. Prescriptions: New sulfamethoxazole-trimethoprim [Bactrim DS] 800-160 mg tablet 1 tab PO BID 14 Days Qty: 28 0RF No Action bupropion HCl [Wellbutrin XL] 150 mg tablet extended release 24 hr 450 mg PO DAILY Qty: 270 3RF citalopram [Celexa] 20 mg tablet 60 mg PO QDAY Qty: 270 2RF Rx Instructions: PA approval 11/05/20-12/07/21 metoprolol succinate 25 mg tablet extended release 24 hr 25 mg PO DAILY Qty: 90 2RF tamsulosin [Flomax] 0.4 mg capsule 0.4 mg PO DAILY Qty: 90 2RF enalapril maleate 2.5 mg tablet See Rx Instructions .ROUTE .COMPLEX Qty: 120 3RF Dose Instruction: take 1 tablet by mouth at bedtime Rx Instructions: take 2 tablet by mouth twice each day lorazepam [Ativan] 0.5 mg tablet 0.5 mg PO BID PRN (Reason: anxiety) Qty: 60 0RF doxycycline hyclate 100 mg Capsule 100 mg PO DAILY Rx Instructions: Take one tab daily x 7 days citalopram 20 mg tablet Patient Comments: TAKE THREE TABLETS BY MOUTH DAILY Referrals: Enoc Tavares MD [Primary Care Provider] - Stand Alone Forms: Patient Portal/API <Stephen Vences, DO - Last Filed: 08/17/22 15:34> Cosign ED Attending Cosignature Attestation: Dr Vences Co-Sign Statement: I was available for consultation during this patient's emergency department visit. This chart is signed by myself for administrative purposes only. I did not have direct contact with this patient during this visit. They were seen independently by the APC.
== END 2022-08-17 14:27 | disposition home or self-care (01) ==
PROVIDERS: Emergency Medicine; Emergency Provider Student in an Organized Health Care Education/Training Program; Family Provider Family Medicine; PCP Family Medicine
DX: N39.0 Urinary tract infection, site not specified (principal); R33.9 Retention of urine, unspecified
CPT/HCPCS: 51702; 51798; 81003; 81015; 87086; 99283

== ENCOUNTER 2022-08-27 20:24 | Emergency (ER) | payer MEDICARE, SELFPAY ==
[2022-08-27 20:25] VITALS: BP 123/63; PULSE 75; RESP 15; TEMP 36.8; O2SAT 95
--- NOTE | 2022-08-27 20:25 | DI.CT.S_ITS ---
PROCEDURE: CT HEAD/BRAIN WO CON INDICATIONS: new onset seizure TECHNIQUE: Noncontrast 4.5 mm thick angled axial sections acquired from the foramen magnum to the vertex, with coronal and sagittal reformats. For radiation dose reduction, the following was used: automated exposure control, adjustment of mA and/or kV according to patient size. COMPARISON: None. FINDINGS: Image quality: Excellent. CSF spaces: Basal cisterns are patent. No extra-axial fluid collections. There is mild cerebral volume loss, with resultant ventricular and sulcal prominence. Brain: No intracranial hemorrhage, mass, or mass effect. There are subcortical, periventricular and deep white matter hypodensities consistent with mild chronic small vessel ischemic changes. The blas-white matter junction appears preserved. There is intracranial internal carotid artery atherosclerosis. Skull and face: Calvarium and visualized facial bones are intact, without suspicious lesions. Sinuses: Visualized sinuses and mastoids are clear. IMPRESSION: 1. No acute intracranial abnormality. 2. Mild chronic white matter small vessel ischemic changes and cerebral volume loss. Dictated by: Margarito Davis M.D. on 08/27/2022 at 21:59 Approved by: Margarito Davis M.D. on 08/27/2022 at 21:59
--- NOTE | 2022-08-27 20:27 | DI.RAD.S_ITS ---
PROCEDURE: XR CHEST 1V INDICATIONS: chest pain TECHNIQUE: One view of the chest was acquired. COMPARISON: [facility], , CHEST 2 VIEW, 05/15/2010, 9:22. FINDINGS: Surgical changes and devices: There is a left chest wall AICD with leads projecting over the right atrium and right ventricle. Lungs and pleura: Lungs are clear. There is hyperinflation of the lungs with flattening of the hemidiaphragms compatible with COPD. No pleural effusions or pneumothorax. Mediastinum: Mediastinal contours appear normal. Heart size is normal. Bones and chest wall: No suspicious bony lesions. Overlying soft tissues appear unremarkable. IMPRESSION: 1. No acute cardiopulmonary disease. Dictated by: Margarito Davis M.D. on 08/27/2022 at 22:13 Approved by: Margarito Davis M.D. on 08/27/2022 at 22:14
[2022-08-27 20:39] LABS: Add Manual Diff / Slide Review NO; Basophils Absolute Auto 100 /uL (0-100); Basophils Percent Auto 1.1 % (0-2); Eosinophils Absolute Auto 400 /uL (0-450); Eosinophils Percent Auto 6.8 % (2-4); Hematocrit 35.8 % (41-53); Hemoglobin 11.9 g/dL (13.5-17.5); Lymphocytes Absolute Auto 1700 /uL (1100-4500); Lymphocytes Percent Auto 29.2 % (25-40); Mean Corpuscular HGB Conc 33.2 % (30-36); Mean Corpuscular Hemoglobin 28.4 PG (26-34); Mean Corpuscular Volume 85.5 fL (80-100); Monocytes Absolute Auto 500 /uL (0-900); Monocytes Percent Auto 8.9 % (3-14); Neutrophils Absolute Auto 3200 /uL (1500-7000); Platelet Count 198 X10^3/uL (150-400); Red Blood Cell Count 4.18 X10^6/uL (4.5-5.9); Red Cell Distribution Width 14.2 % (11.6-14.8); White Blood Cell Count 5.9 X10^3/uL (4.5-11.0)
[2022-08-27 20:47] LABS: Prothrombin Time 11.8 SECONDS (10.1-12.7)
[2022-08-27 20:51] LABS: PTT Partial Thromboplastin Tim 28 SECONDS (26-36)
[2022-08-27 20:53] LABS: Alanine Aminotransferase 35 IU/L (<50); Albumin 4.1 g/dL (3.5-5.0); Albumin Globulin Ratio 1.6 (1.0-2.8); Alkaline Phosphatase 91 U/L (38-126); Aspartate Aminotransferase 27 IU/L (17-59); BUN Creatinine Ratio 17.3 (6-22); Bilirubin Total 0.3 mg/dL (0.2-1.3); Blood Urea Nitrogen 22 mg/dL (9-20); Calcium 8.2 mg/dL (8.4-10.2); Carbon Dioxide 20 mmol/L (22-32); Chloride 106 mmol/L (98-107); Creatine Kinase 63 U/L (55-170); Estimated Glomerular Filt Rate > 60 mL/min (>60); Globulin 2.6 g/dL (1.7-4.1); Glucose 94 mg/dL (70-100); HEMOLYSIS < 15 (0-50); Lipase 72 U/L (23-300); Magnesium 2.3 mg/dL (1.6-2.3); Potassium 4.1 mmol/L (3.4-5.1); Sodium 137 mmol/L (137-145); Total Protein 6.7 g/dL (6.3-8.2)
[2022-08-27 21:05] LABS: Troponin I < 0.012 ng/mL (0.01-0.034)
[2022-08-27] MEDS: SODIUM CHLORIDE 0.9% 1,000 ML 1000 ML IV (21:06)
[2022-08-27 21:41] LABS: Appearance Urine UA CLEAR; Bilirubin Urine UA NEGATIVE (NEGATIVE); Color Urine UA YELLOW; Glucose Urine UA NEGATIVE (Negative); Ketones Urine UA NEGATIVE (NEGATIVE); Leukocyte Esterase Urine UA TRACE (NEGATIVE); Nitrite Urine UA NEGATIVE (Negative); Occult Blood Urine UA NEGATIVE (Negative); Protein Urine UA NEGATIVE (Negative); Specific Gravity Urine UA >=1.030 (1.000-1.035)
[2022-08-27 21:47] LABS: UR Morphine/Opiate cutoff 300 Positive (Negative); Ur Creatinine Normal (Normal); Ur Specific Gravity Normal (Normal); Urine Amphetamines Negative (Negative); Urine Barbiturates Negative (Negative); Urine Benzodiazepines Positive (Negative); Urine Cocaine Negative (Negative); Urine MDMA Negative (Negative); Urine Methamphetamines Negative (Negative); Urine Phencyclidine Negative (Negative); Urine Tetrahydrocannabinol Negative (Negative); Urine pH Normal (Normal)
[2022-08-27 21:48] LABS: Urine Methadone Negative (Negative); Urine Oxycodone Negative (Negative); Urine Tricyclic Antidepressant Negative (Negative)
[2022-08-27 21:53] LABS: COVID19 -Nasal RAPID Negative (Negative)
[2022-08-27 21:55] LABS: Bacteria Urine None Seen; Culture Indicated Urine Cult Not Indicated; RBC Urine None Seen (0-5/HPF); WBC Urine 1-5/HPF (0-5/HPF)
[2022-08-27] MEDS: ONDANSETRON 4 MG/2 ML INJ IV (22:50)
--- NOTE | 2022-08-27 22:50 | ED_ITS ---
HPI - Seizure General Chief Complaint: Seizure Stated Complaint: Seizure/witnessed Time Seen by Provider: 08/27/22 20:25 Source: patient and EMS Mode of arrival: EMS History of Present Illness HPI Narrative: Patient is a 52 year male history of anxiety, cardiomyopathy with EF 20% recent AICD, BPH recent urinary retention with UTI presents today with seizure. He takes Ativan twice a day for anxiety along with Celexa and Wellbutrin. reports that she saw him shaking all over tonic-clonic movements foaming at the mouth. He woke up postictal with tongue injury. He is never had any history of seizure before he denies any alcohol use. He says he has been eating and sleeping normally. He is been on Ativan for a long period of time he is not missed any doses. reports that he is had to get refills there is relax about 72 hours where he is out of Ativan and he is never had a seizure. This was not recent he took his Ativan this morning as usual. Related Data Home Medications Medication Instructions Recorded Confirmed citalopram 20 mg tablet mg 08/17/22 doxycycline hyclate 100 mg capsule 100 mg PO DAILY 08/17/22 08/17/22 Previous Rx's Medication Instructions Recorded bupropion HCl 150 mg 24 hr tablet, 450 mg PO DAILY #270 tabs 02/08/22 extended release (Wellbutrin XL) citalopram 20 mg tablet (Celexa) 60 mg PO QDAY #270 tabs 02/08/22 metoprolol succinate 25 mg 25 mg PO DAILY #90 tabs 02/08/22 tablet,extended release 24 hr tamsulosin 0.4 mg capsule (Flomax) 0.4 mg PO DAILY #90 caps 02/08/22 enalapril maleate 2.5 mg tablet See Rx Instructions .Route 03/16/22 .COMPLEX #120 tabs sulfamethoxazole 800 1 tab PO BID 14 days #28 tabs 08/17/22 mg-trimethoprim 160 mg tablet (Bactrim DS) lorazepam 0.5 mg tablet (Ativan) 0.5 mg PO BID PRN anxiety #60 tabs 08/23/22 Allergies Allergy/AdvReac Type Severity Reaction Status Date / Time Penicillins Allergy Unknown Verified 08/27/22 20:30 morphine AdvReac Mild SEVERE Verified 08/27/22 20:30 NAUSEA Review of Systems Review of Systems ROS Unobtainable: All systems reviewed & are unremarkable except as noted in HPI and below Patient History Medical History Anemia Chest discomfort Dilatation of aorta Dilated cardiomyopathy Dysuria Eczema (2012) Microalbuminuria Palpitations Surgical History Anesthesia History of dental surgery (2012) History of thyroid surgery (~2008) Family History Mother Age: 81 Pacemaker Father No problems noted. Grandfather No problems noted. Social History Smoking Status: Never smoker Smoking Status: Never smoker alcohol intake frequency: other Substance Use Type: does not use Exam Initial Vital Signs Initial Vital Signs: Vital Signs Temperature 98.2 F 08/27/22 20:25 Pulse Rate 75 08/27/22 20:25 Respiratory Rate 15 08/27/22 20:25 Blood Pressure 123/63 08/27/22 20:25 Pulse Oximetry 95 08/27/22 20:25 Oxygen Delivery Method Room Air 08/27/22 20:25 GENERAL: Alert pleasant 59 no acute distress HEENT: Head atraumatic,EOMI, pupils reactive, face symmetric, tongue injury CARDIOVASCULAR: Regular rate and rhythm without murmurs, rubs or gallops. RESPIRATORY: Breath sounds equal bilaterally, no wheezes rales or rhonchi. ABDOMEN: Soft, nontender. Normoactive bowel sounds all 4 quadrants. No guarding or rebound. : Jones catheter placed EXTREMITIES: Normal range of motion, no clubbing or edema. Neurovascularly intact NEUROLOGICAL: Alert and oriented x4.Normal gait and speech. Cranial nerves II through XII grossly intact. SKIN: Warm, dry, no laceration, no petechiae, no rashes or lesions. Course Orders Ordered: Discontinued Medications Sodium Chloride (Normal Saline 0.9%) 1,000 mls @ 1,000 mls/hr IV BOLUS ONE Stop: 08/27/22 21:24 Last Infusion: 08/27/22 22:10 Dose: 0 mls/hr Documented By: Admin: 08/27/22 21:06 Dose: 1,000 mls/hr Documented By: RORY Ondansetron HCl (Ondansetron 4 Mg/2 Ml Inj) 4 mg IV NOW ONE Stop: 08/27/22 22:41 Last Admin: 08/27/22 22:50 Dose: 4 mg Documented By: RORY Vital Signs Vital signs: Vital Signs - 8 hr 08/27/22 23:41 Temperature 98.1 F Pulse Rate 72 Respiratory Rate 16 Blood Pressure 114/61 Pulse Oximetry 96 Oxygen Delivery Method Room Air MDM - Seizure Lab Data 08/27/22 20:00 08/27/22 20:00 Labs: Lab Results 08/27/22 08/27/22 08/27/22 Range/Units 20:00 20:00 20:00 WBC 5.9 (4.5-11.0) X10^3/uL RBC 4.18 L (4.5-5.9) X10^6/uL Hgb 11.9 L (13.5-17.5) g/dL Hct 35.8 L (41-53) % MCV 85.5 (80-100) fL MCH 28.4 (26-34) PG MCHC 33.2 (30-36) % RDW 14.2 (11.6-14.8) % Plt Count 198 (150-400) X10^3/uL Neut % (Auto) 54.0 (50-75) % Lymph % (Auto) 29.2 (25-40) % [place] % (Auto) 8.9 (3-14) % Eos % (Auto) 6.8 H (2-4) % Baso % (Auto) 1.1 (0-2) % Neut # (Auto) 3200 (6151-7951) /uL Lymph # (Auto) 1700 (7444-3558) /uL [place] # (Auto) 500 (0-900) /uL Eos # (Auto) 400 (0-450) /uL Baso # (Auto) 100 (0-100) /uL PT 11.8 (10.1-12.7) SECONDS INR 1.0 (0.9-1.3) APTT 28 (26-36) SECONDS Sodium 137 (137-145) mmol/L Potassium 4.1 (3.4-5.1) mmol/L Chloride 106 (98-107) mmol/L Carbon Dioxide 20 L (22-32) mmol/L BUN 22 H (9-20) mg/dL Creatinine 1.27 H (0.66-1.25) mg/dL Estimated GFR > 60 (>60) mL/min BUN/Creatinine Ratio 17.3 (6-22) Glucose 94 (70-100) mg/dL Calcium 8.2 L (8.4-10.2) mg/dL Magnesium 2.3 (1.6-2.3) mg/dL Total Bilirubin 0.3 (0.2-1.3) mg/dL AST 27 (17-59) IU/L ALT 35 (<50) IU/L Alkaline Phosphatase 91 (38-126) U/L Total Creatine Kinase 63 (55-170) U/L CK-MB (CK-2) TNP CK-MB (CK-2) Rel Index TNP Troponin I < 0.012 (0.01-0.034) ng/mL Total Protein 6.7 (6.3-8.2) g/dL Albumin 4.1 (3.5-5.0) g/dL Globulin 2.6 (1.7-4.1) g/dL Albumin/Globulin Ratio 1.6 (1.0-2.8) Lipase 72 (23-300) U/L Urine Color Urine Appearance Urine pH (4.5-8.0) Ur Specific [place] (1.000-1.035) Urine Protein (Negative) Urine Glucose (UA) (Negative) g/dL Urine Ketones (NEGATIVE) Urine Occult Blood (Negative) Urine Nitrate (Negative) Urine Bilirubin (NEGATIVE) Urine Urobilinogen (0.2) E.U./dL Ur Leukocyte Esterase (NEGATIVE) Urine RBC (0-5/HPF) Urine WBC (0-5/HPF) Urine Bacteria (None) Ur Culture Indicated? U Opiates 300ng/mL cut (Negative) Ur Oxycodone Screen (Negative) Urine Methadone Screen (Negative) Ur Barbiturates Screen (Negative) U Tricyclic Antidepress (Negative) Ur Phencyclidine Scrn (Negative) Ur Amphetamines Screen (Negative) U Methamphetamines Scrn (Negative) Ur MDMA Scrn (Ecstasy) (Negative) U Benzodiazepines Scrn (Negative) Urine Cocaine Screen (Negative) U Marijuana (THC) Screen (Negative) SARS-CoV-2 (PCR) (Negative) 04/08/27/22 08/27/22 Range/Units 20:50 21:30 21:30 WBC (4.5-11.0) X10^3/uL RBC (4.5-5.9) X10^6/uL Hgb (13.5-17.5) g/dL Hct (41-53) % MCV (80-100) fL MCH (26-34) PG MCHC (30-36) % RDW (11.6-14.8) % Plt Count (150-400) X10^3/uL Neut % (Auto) (50-75) % Lymph % (Auto) (25-40) % [place] % (Auto) (3-14) % Eos % (Auto) (2-4) % Baso % (Auto) (0-2) % Neut # (Auto) (2845-5682) /uL Lymph # (Auto) (7254-0301) /uL [place] # (Auto) (0-900) /uL Eos # (Auto) (0-450) /uL Baso # (Auto) (0-100) /uL PT (10.1-12.7) SECONDS INR (0.9-1.3) APTT (26-36) SECONDS Sodium (137-145) mmol/L Potassium (3.4-5.1) mmol/L Chloride (98-107) mmol/L Carbon Dioxide (22-32) mmol/L BUN (9-20) mg/dL Creatinine (0.66-1.25) mg/dL Estimated GFR (>60) mL/min BUN/Creatinine Ratio (6-22) Glucose (70-100) mg/dL Calcium (8.4-10.2) mg/dL Magnesium (1.6-2.3) mg/dL Total Bilirubin (0.2-1.3) mg/dL AST (17-59) IU/L ALT (<50) IU/L Alkaline Phosphatase (38-126) U/L Total Creatine Kinase (55-170) U/L CK-MB (CK-2) CK-MB (CK-2) Rel Index Troponin I (0.01-0.034) ng/mL Total Protein (6.3-8.2) g/dL Albumin (3.5-5.0) g/dL Globulin (1.7-4.1) g/dL Albumin/Globulin Ratio (1.0-2.8) Lipase (23-300) U/L Urine Color Yellow Urine Appearance Clear Urine pH 6.0 (4.5-8.0) Ur Specific [place] >=1.030 H (1.000-1.035) Urine Protein Negative (Negative) Urine Glucose (UA) Negative (Negative) g/dL Urine Ketones Negative (NEGATIVE) Urine Occult Blood Negative (Negative) Urine Nitrate Negative (Negative) Urine Bilirubin Negative (NEGATIVE) Urine Urobilinogen 1.0 (0.2) E.U./dL Ur Leukocyte Esterase Trace H (NEGATIVE) Urine RBC None seen (0-5/HPF) Urine WBC 1-5/hpf (0-5/HPF) Urine Bacteria None seen (None) Ur Culture Indicated? Cult not indicated U Opiates 300ng/mL cut Positive H (Negative) Ur Oxycodone Screen Negative (Negative) Urine Methadone Screen Negative (Negative) Ur Barbiturates Screen Negative (Negative) U Tricyclic Antidepress Negative (Negative) Ur Phencyclidine Scrn Negative (Negative) Ur Amphetamines Screen Negative (Negative) U Methamphetamines Scrn Negative (Negative) Ur MDMA Scrn (Ecstasy) Negative (Negative) U Benzodiazepines Scrn Positive H (Negative) Urine Cocaine Screen Negative (Negative) U Marijuana (THC) Screen Negative (Negative) SARS-CoV-2 (PCR) Negative (Negative) Imaging Data CT scan - head: Radiologist's Impression: PROCEDURE:? CT HEAD/BRAIN WO CON ? INDICATIONS:? new onset seizure ? TECHNIQUE:? Noncontrast 4.5 mm thick angled axial sections acquired from the foramen magnum to the vertex, with coronal and sagittal reformats.? For radiation dose reduction, the following was used:? automated exposure control, adjustment of mA and/or kV according to patient size.? ? COMPARISON:? None. ? FINDINGS:? Image quality:? Excellent.? ? CSF spaces:? Basal cisterns are patent.? No extra-axial fluid collections.? There is mild cerebral volume loss, with resultant ventricular and sulcal prominence.? ? Brain:? No intracranial hemorrhage, mass, or mass effect.? There are subcortical, periventricular and deep white matter hypodensities consistent with mild chronic small vessel ischemic changes.? The blas-white matter junction appears preserved.? There is intracranial internal carotid artery atherosclerosis.? ? Skull and face:? Calvarium and visualized facial bones are intact, without suspicious lesions.? ? Sinuses:? Visualized sinuses and mastoids are clear.? ? IMPRESSION:? ? 1. No acute intracranial abnormality. ? 2. Mild chronic white matter small vessel ischemic changes and cerebral volume loss.? ? ? Dictated by: Margarito Davis M.D. on 08/27/2022 at 21:59 ? ? Chest x-ray: Radiologist's Impression: PROCEDURE:? XR CHEST 1V ? INDICATIONS:? chest pain ? TECHNIQUE:? One view of the chest was acquired.? ? COMPARISON:? [facility], , CHEST 2 VIEW, 05/15/2010, 9:22. ? FINDINGS:? ? Surgical changes and devices:? There is a left chest wall AICD with leads projecting over the right atrium and right ventricle.? ? Lungs and pleura:? Lungs are clear. There is hyperinflation of the lungs with flattening of the hemidiaphragms compatible with COPD. ? No pleural effusions or pneumothorax.? ? Mediastinum:? Mediastinal contours appear normal.? Heart size is normal.? ? Bones and chest wall:? No suspicious bony lesions.? Overlying soft tissues appear unremarkable.? ? IMPRESSION:? ? 1.? No acute cardiopulmonary disease. ? ? ? Dictated by: Margarito Davis M.D. on 08/27/2022 at 22:13 ECG Data Interpretation: Sinus rhythm rate 72 DC interval [address] QRS [address] changes no prior to compare [facility] Narrative Medical decision making narrative: 61-year-old male presents new onset seizure. Head CT is negative for any mass or bleed. I suspect seizure caused by medications Celexa or Wellbutrin likely Wellbutrin. He is on Ativan however this did not present is seizure. Blood work is overall reassuring. No evidence of sepsis. Jones catheter is to be removed September 02. Unlikely to be related to a ventricular rhythm this time recommend stopping both Celexa and Wellbutrin and follow-up with PCP. Discharge Plan Departure Patient Disposition: Home Clinical Impression: Seizure Instructions: DI for Seizure (Not Epilepsy/Seizure Disorder) Activity Restrictions/Additional Instructions: NOT DRIVE UNTIL CLEARED BY NEUROLGY *You have been diagnosed with seizure *What to do: At this time I suspect her seizure was caused by medication. *Continue to take medications as directed For now. Taking Celexa and Wellbutrin. Please talk to your primary provider about this Please take her nightly dose of Ativan tonight *Follow up with your primary care provider in 2-3 days or call [phone] *Return to ER if you should have recurrent seizure, confusion persistent vomiting or any new, worsening or concerning symptoms Prescriptions: No Action bupropion HCl [Wellbutrin XL] 150 mg tablet extended release 24 hr 450 mg PO DAILY Qty: 270 3RF citalopram [Celexa] 20 mg tablet 60 mg PO QDAY Qty: 270 2RF Rx Instructions: [place] approval 11/05/20-12/07/21 metoprolol succinate 25 mg tablet extended release 24 hr 25 mg PO DAILY Qty: 90 2RF tamsulosin [Flomax] 0.4 mg capsule 0.4 mg PO DAILY Qty: 90 2RF enalapril maleate 2.5 mg tablet See Rx Instructions .ROUTE .COMPLEX Qty: 120 3RF Dose Instruction: take 1 tablet by mouth at bedtime Rx Instructions: take 2 tablet by mouth twice each day lorazepam [Ativan] 0.5 mg tablet 0.5 mg PO BID PRN (Reason: anxiety) Qty: 60 3RF doxycycline hyclate 100 mg Capsule 100 mg PO DAILY Rx Instructions: Take one tab daily x 7 days citalopram 20 mg tablet Patient Comments: TAKE THREE TABLETS BY MOUTH DAILY sulfamethoxazole-trimethoprim [Bactrim DS] 800-160 mg tablet 1 tab PO BID 14 Days Qty: 28 0RF Referrals: Enoc Tavares MD [Primary Care Provider] - Stand Alone Forms: Patient Portal/API
[2022-08-27 23:41] VITALS: BP 114/61; PULSE 72; RESP 16; TEMP 36.7; O2SAT 96
== END 2022-08-27 23:43 | disposition home or self-care (01) ==
PROVIDERS: Emergency Provider Emergency Medicine; Family Provider Family Medicine; PCP Family Medicine
DX: R56.9 Unspecified convulsions (principal); R07.9 Chest pain, unspecified; Z20.822 Contact with and (suspected) exposure to COVID-19
CPT/HCPCS: 36415; 70450; 71045; 80053; 80305; 81001; 82550; 83690; 83735; 84484; 85025; 85610; 85730; 87635; 93005; 93010; 96361; 96374; 99284; C9803; J2405

== ENCOUNTER → 2023-01-11 12:43 | Outpatient (CLI) | payer MEDICARE, SELFPAY ==
--- NOTE | 2023-01-11 | DI.ECHO.S_ITS ---
[facility] +---------+ : : [address] [place] : : : : [id number] : : : : Phone: [phone]+ Echocardiogram Report + + :Name: SARITA GERMAIN SR Study Date: 01/11/2023 Height: 73 in : :[facility] ReadingLocation: Weight: 149 lb : : Gender: Male BSA: 1.9 m2 : :: 1960 Age: 62 yrs BP: 117/67 mmHg: :Reason For Study: NON-ISCHEMIC CARDIOMYPATHY : :Ordering Physician: TIERRA, : :JASMINE Performed By: Eve Solano : :Referring: JASMINE MAYORGA : + + Interpretation Summary The left ventricle is severely dilated. The ejection fraction is estimated to be 20-25%. The right ventricular systolic function is normal. The right ventricular systolic pressure is estimated to be at least 16 mmHg based on an estimated right atrial pressure of 3 mm Hg. No significant change from last study in 02/15/2022. Procedure: A two-dimensional transthoracic echocardiogram with color flow and Doppler was performed. The study quality was technically adequate. Comparison is made with the echocardiogram of 02/15/2022. The patient was in sinus rhythm with heart rates between 60-66 bpm during the exam. Left Ventricle: The left ventricle is severely dilated. There is normal left ventricular wall thickness. The ejection fraction is estimated to be 20-25%. Right Ventricle: There is a pacemaker lead in the right ventricle. The right ventricle is normal size. The right ventricular systolic function is normal. Atria: The left atrium is mildly dilated. Right atrial size is normal. There is no Doppler evidence for an interatrial shunt. Mitral Valve: The mitral valve is normal in structure and function. There is mild mitral regurgitation. Aortic Valve: The aortic valve is trileaflet. The aortic valve opens well. There is no aortic valve stenosis. There is mild aortic regurgitation. Tricuspid Valve: The tricuspid valve is normal in structure and function. There is mild tricuspid regurgitation. The right ventricular systolic pressure is estimated to be at least 16 mmHg based on an estimated right atrial pressure of 3 mm Hg. Pulmonic Valve: The pulmonic valve leaflets are thin and pliable; valve motion is normal. There is mild pulmonic regurgitation. Great Vessels: The aortic root is moderately dilated. The ascending aorta could not be visualized. The IVC is of normal diameter and collapses greater than 50% with a sniff. This suggests a low right atrial pressure of 3 mm Hg. Pericardium/ Pleura There is no pericardial effusion. There is no pleural effusion. MMode/2D Measurements & Calculations LVIDd: 7.9 cm LVOT diam: 2.7 cm LVIDs: 6.9 cm Ao root diam: 4.6 cm FS: 12.9 % EPSS: 3.1 cm IVSd: 1.1 cm LVPWd: 0.92 cm LV brody. diameter/BSA (cm/m^2): 4.1 LV sys. diameter/BSA (cm/m^2): 3.6 LA A2 area: 21.6 cm2 RA long axis: 5.0 cm LA A4 area: 21.8 cm2 RA area: 18.3 cm2 LA length (vol): 5.2 cm RA vol: 56.6 ml LA vol: 76.2 ml RA : 29.8 ml/m2 LA vol index: 40.1 ml/m2 IVC diam: 1.3 cm RVD1 (basal): 2.9 cm TAPSE: 1.9 cm Doppler Measurements & Calculations Ao V2 max: 98.2 cm/sec LVOT Max Rajat: 55.7 cm/sec Ao V2 mean: 76.8 cm/sec LV V1 max P.2 mmHg Ao max P.9 mmHg LV V1 VTI: 11.1 cm Ao mean P.5 mmHg RAMON(I,D): 3.2 cm2 Ao V2 VTI: 19.0 cm RAMON(V,D): 3.2 cm2 sev ratio: 0.58 RAMON indexed to BSA (cm^2/m^2): 1.7 MV E max rajat: 33.1 cm/sec TR max rajat: 181.7 cm/sec MV A max rajat: 48.5 cm/sec TR max P.2 mmHg MV E/A: 0.68 PA V2 max: 83.4 cm/sec Med Peak E' Rajat: 4.2 cm/sec PA V2 mean: 57.4 cm/sec E/E' med: 7.9 PA mean P.5 mmHg Lat Peak E' Rajat: 2.7 cm/sec PA pr(Accel): 19.1 mmHg E/E' lat: 12.0 E/e' average: 10.0 MV dec time: 0.32 sec [facility] SERVICES[facility]OT): 61.7 ml Reading Physician:MAILE
== END ==
PROVIDERS: Family Provider Family Medicine; PCP Family Medicine; Referring Provider Internal Medicine; Visit Provider Internal Medicine
DX: I42.8 Other cardiomyopathies (principal); I08.3 Combined rheumatic disorders of mitral, aortic and tricuspid valves
CPT/HCPCS: 93306

== ENCOUNTER → 2023-03-21 08:21 | Outpatient (CLI) | payer MEDICARE, SELFPAY ==
[2023-03-21 09:36] LABS: Add Manual Diff / Slide Review NO; Basophils Absolute Auto 100 /uL (0-100); Basophils Percent Auto 1.2 % (0-2); Eosinophils Absolute Auto 700 /uL (0-450); Eosinophils Percent Auto 12.7 % (2-4); Hematocrit 38.1 % (41-53); Hemoglobin 12.6 g/dL (13.5-17.5); Lymphocytes Absolute Auto 1200 /uL (1100-4500); Lymphocytes Percent Auto 21.5 % (25-40); Mean Corpuscular HGB Conc 33.1 % (30-36); Mean Corpuscular Hemoglobin 26.7 PG (26-34); Mean Corpuscular Volume 80.7 fL (80-100); Monocytes Absolute Auto 400 /uL (0-900); Monocytes Percent Auto 6.4 % (3-14); Neutrophils Absolute Auto 3400 /uL (1500-7000); Neutrophils Percent Auto 58.2 % (50-75); Platelet Count 186 X10^3/uL (150-400); Red Blood Cell Count 4.72 X10^6/uL (4.5-5.9); Red Cell Distribution Width 15.1 % (11.6-14.8); White Blood Cell Count 5.8 X10^3/uL (4.5-11.0)
[2023-03-21 09:49] LABS: Alanine Aminotransferase 52 IU/L (<50); Albumin 4.2 g/dL (3.5-5.0); Albumin Globulin Ratio 1.6 (1.0-2.8); Alkaline Phosphatase 83 U/L (38-126); Aspartate Aminotransferase 36 IU/L (17-59); BUN Creatinine Ratio 14.8 (6-22); Bilirubin Total 0.8 mg/dL (0.2-1.3); Blood Urea Nitrogen 16 mg/dL (9-20); Calcium 9.5 mg/dL (8.4-10.2); Carbon Dioxide 26 mmol/L (22-32); Chloride 103 mmol/L (98-107); Cholesterol 206 mg/dL (140-199); Estimated Glomerular Filt Rate > 60 mL/min (>60); Globulin 2.7 g/dL (1.7-4.1); Glucose 88 mg/dL (80-110); HDL Cholesterol 75 mg/dL (40-60); HEMOLYSIS < 15 (0-50); LDL Cholesterol Calculated 116 mg/dL (<100); Potassium 4.1 mmol/L (3.4-5.1); Sodium 136 mmol/L (137-145); Total Protein 6.9 g/dL (6.3-8.2); Triglycerides 77 mg/dL (35-150)
[2023-03-21 10:18] LABS: Prostate Specific Antigen Scrn 0.821 ng/mL (0.1-4.0)
[2023-03-21 16:36] LABS: Microalbumin Urine Random 2.7 mg/dL (0-1.6)
[2023-03-21 16:42] LABS: Creatinine Urine Random 123.5 mg/dL; Microalbumi Creatinin Ratio Ur 21.8 ug/mg CR (<30)
[2023-03-21 17:31] LABS: Hep C Virus Ab w/Reflex Quant NEGATIVE s/c (NEGATIVE)
== END ==
PROVIDERS: Family Provider Family Medicine; PCP Family Medicine; Referring Provider Family Medicine; Visit Provider Family Medicine
DX: Z00.00 Encounter for general adult medical examination without abnormal findings (principal); I77.819 Aortic ectasia, unspecified site; E03.9 Hypothyroidism, unspecified; Z12.5 Encounter for screening for malignant neoplasm of prostate; I42.0 Dilated cardiomyopathy; D64.9 Anemia, unspecified; R80.9 Proteinuria, unspecified; F32.9 Major depressive disorder, single episode, unspecified; R56.9 Unspecified convulsions
CPT/HCPCS: 36415; 80053; 80061; 82043; 82570; 85025; 86803; G0103

== ENCOUNTER → 2023-07-27 07:54 | Outpatient (CLI) | payer MEDICARE, SELFPAY ==
[2023-07-28 11:11] LABS: Fecal Immunochemical Test Negative (Negative)
== END ==
PROVIDERS: Family Provider Family Medicine; PCP Family Medicine; Referring Provider Family Medicine; Visit Provider Family Medicine
DX: Z12.11 Encounter for screening for malignant neoplasm of colon (principal)
CPT/HCPCS: 82274

== ENCOUNTER → 2024-01-05 08:24 | Outpatient (CLI) | payer MEDICARE, SELFPAY ==
[2024-01-05 08:42] LABS: Add Manual Diff / Slide Review NO; Basophils Absolute Auto 0 /uL (0-100); Basophils Percent Auto 0.9 % (0-2); Eosinophils Absolute Auto 400 /uL (0-450); Eosinophils Percent Auto 8.8 % (2-4); Hematocrit 39.1 % (41-53); Hemoglobin 13.1 g/dL (13.5-17.5); Lymphocytes Absolute Auto 1100 /uL (1100-4500); Lymphocytes Percent Auto 22.1 % (25-40); Mean Corpuscular HGB Conc 33.5 % (30-36); Mean Corpuscular Volume 83.6 fL (80-100); Monocytes Absolute Auto 300 /uL (0-900); Monocytes Percent Auto 6.6 % (3-14); Neutrophils Absolute Auto 3100 /uL (1500-7000); Neutrophils Percent Auto 61.6 % (50-75); Platelet Count 174 X10^3/uL (150-400); Red Blood Cell Count 4.67 X10^6/uL (4.5-5.9); Red Cell Distribution Width 14.6 % (11.6-14.8)
[2024-01-05 09:01] LABS: HEMOLYSIS < 15 (0-50)
[2024-01-05 09:12] LABS: Alanine Aminotransferase 16 IU/L (<50); Albumin 4.5 g/dL (3.5-5.0); Albumin Globulin Ratio 1.8 (1.0-2.8); Alkaline Phosphatase 83 U/L (38-126); Aspartate Aminotransferase 23 IU/L (17-59); BUN Creatinine Ratio 15.9 (6-22); Bilirubin Total 0.8 mg/dL (0.2-1.3); Blood Urea Nitrogen 20 mg/dL (9-20); Calcium 9.3 mg/dL (8.4-10.2); Carbon Dioxide 25 mmol/L (22-32); Chloride 106 mmol/L (98-107); Cholesterol 214 mg/dL (140-199); Estimated Glomerular Filt Rate > 60 mL/min (>60); Globulin 2.5 g/dL (1.7-4.1); Glucose 96 mg/dL (80-110); HDL Cholesterol 79 mg/dL (40-60); LDL Cholesterol Calculated 116 mg/dL (<100); Potassium 4.2 mmol/L (3.4-5.1); Sodium 139 mmol/L (137-145); Triglycerides 94 mg/dL (35-150)
[2024-01-05 09:31] LABS: Prostate Specific Antigen Scrn 0.986 ng/mL (0.1-4.0); TSH w/ Reflex to FT4 0.93 uIU/mL (0.47-4.68)
[2024-01-05 15:58] LABS: Creatinine Urine Random 251.26 mg/dL
[2024-01-05 16:03] LABS: Microalbumin Urine Random 6.6 mg/dL (0-1.6)
== END ==
PROVIDERS: Family Provider Family Medicine; PCP Family Medicine; Referring Provider Family Medicine; Visit Provider Family Medicine
DX: Z12.5 Encounter for screening for malignant neoplasm of prostate (principal); I77.819 Aortic ectasia, unspecified site; E03.9 Hypothyroidism, unspecified; F41.8 Other specified anxiety disorders; I42.0 Dilated cardiomyopathy; D64.9 Anemia, unspecified; R80.9 Proteinuria, unspecified; F32.9 Major depressive disorder, single episode, unspecified
CPT/HCPCS: 36415; 80053; 80061; 82043; 82570; 84443; 85025; G0103

== ENCOUNTER → 2025-01-15 10:12 | Outpatient (CLI) | payer MEDICARE, SELFPAY ==
--- NOTE | 2025-01-15 10:13 | DI.RAD.S_ITS ---
PROCEDURE: XR LUMBAR SPINE 2-3V INDICATIONS: Back and hip pain TECHNIQUE: 3 views of the lumbar spine were acquired. COMPARISON: None. FINDINGS: Lumbar spine curvature and alignment: Mild dextroscoliosis lower thoracic and lumbar spine appreciated. Bones: There are no osseous abnormalities. Disc spaces: Mild L2-3 L3-4 L4-5 L5-S1 degenerative disc disease. Moderate L4- 5 and L5-S1 degenerative facet disease degenerative facet disease Degenerative facet disease Soft tissues: No soft tissue swelling, calcification or mass. IMPRESSION: Degeneration Dictated by: Pérez Wahl M.D. on 01/15/2025 at 11:39 Approved by: Péerz Wahl M.D. on 01/15/2025 at 11:40
--- NOTE | 2025-01-15 10:13 | DI.RAD.S_ITS ---
PROCEDURE: XR HIP W PEL IF DONE RT 2V INDICATIONS: Back and hip pain TECHNIQUE: Two views of the hip were acquired. COMPARISON: None. FINDINGS: Bones: There are no osseous abnormalities Joints: Moderate to severe bilateral hip degeneration appreciated. Both SI joints show mild degeneration. Moderate L4-5 L5-S1 degenerative disc and facet disease . Soft tissues: No soft tissue abnormality. IMPRESSION: Bilateral degeneration Dictated by: Pérez Wahl M.D. on 01/15/2025 at 11:35 Approved by: Pérez Wahl M.D. on 01/15/2025 at 11:36
== END ==
PROVIDERS: PCP Family Medicine; Referring Provider Family Medicine; Visit Provider Family Medicine
DX: M16.0 Bilateral primary osteoarthritis of hip (principal); M25.551 Pain in right hip; G57.00 Lesion of sciatic nerve, unspecified lower limb; M51.360 Other intervertebral disc degeneration, lumbar region with discogenic back pain only; M51.370 Other intervertebral disc degeneration, lumbosacral region with discogenic back pain only; M47.816 Spondylosis without myelopathy or radiculopathy, lumbar region; M47.817 Spondylosis without myelopathy or radiculopathy, lumbosacral region
CPT/HCPCS: 72100; 73502

== ENCOUNTER → 2025-02-24 09:36 | Outpatient (CLI) | payer MEDICARE, SELFPAY ==
--- NOTE | 2025-02-24 09:38 | DI.RAD.S_ITS ---
PROCEDURE: XR CHEST 2V INDICATIONS: PLACEMENT OF PACEMAKER DEFIBRILLATOR TECHNIQUE: 2 views of the chest were acquired. COMPARISON: [facility], , XR CHEST 1V, 08/27/2022, 20:45. FINDINGS: Surgical changes and devices: Left chest wall pacemaker. Lungs and pleura: Lungs are clear. No pleural effusions or pneumothorax. Mediastinum: Mediastinal contours are normal. Heart size is normal. Bones and chest wall: No suspicious bony abnormalities. Stable scoliotic curvature. Soft tissues appear unremarkable. IMPRESSION: Left chest wall pacemaker. No pneumothorax is seen. No acute cardiopulmonary abnormality is seen. Dictated by: Sachin Jaquez M.D. on 02/24/2025 at 14:08 Approved by: Sachin Jaquez M.D. on 02/24/2025 at 14:08
== END ==
LOC: RAD 09:38
PROVIDERS: PCP Family Medicine; Referring Provider Family Medicine; Visit Provider Physical Medicine & Rehabilitation
DX: Z09 Encounter for follow-up examination after completed treatment for conditions other than malignant neoplasm (principal); Z95.0 Presence of cardiac pacemaker
CPT/HCPCS: 71046

== ENCOUNTER 2025-02-28 13:28 | Outpatient (CLI) | payer MEDICARE, SELFPAY ==
[2025-02-28] VITALS (8 sets, daily range): BP systolic 98–120; BP diastolic 55–67; PULSE 69–73; RESP 13–18; TEMP 36.2; O2SAT 97–99
[2025-02-28] MEDS: MIDAZOLAM 2 MG/2 ML VIAL IV (16:11)
[2025-02-28] MEDS: BETAMETHASONE 30 MG/5 ML MDV 12 MG INJ (16:20)
--- NOTE | 2025-02-28 16:35 | P.PCN_ITS ---
Date/Time/Diagnoses Date of procedure: 02/28/25 Time of procedure: 16:35 Pre-procedure diagnosis: FORAMINAL STENOSIS WITH LE SYMPTOMS Post-procedure diagnosis: same Procedure Notes Procedure: 1. FLUOROSCOPICALLY GUIDED CONTRAST CONTROLLED TRANSFORAMINAL EPIDURAL STEROID INJECTION - RIGHT L5/S1 TFESI Indications: Shiv is referred by Dr. Tavares for treatment of Foraminal Stenosis with Right LE Symptoms Physician: Mark Trivedi Total Fluoroscopy time (seconds): 7 Total sedation minutes: 17 Complications: none Procedure in detail & Post-procedure care: FINDINGS Foraminal Nerve Root Compression secondary to disc disease and facet hypertrophy DESCRIPTION OF PROCEDURE Following review of allergy and review of potential side effects and complications, including, but not necessarily limited to, infection, allergic re action, local tissue breakdown, stroke, temporary or permanent nerve injury, paralysis, and possible , the patient indicated that the patient understood and agreed to proceed. An informed consent document was signed by the patient, witnessed by a nurse, and placed in the patient's chart. Additionally, other treatment options including medications, modalities, and physical therapy were reviewed with the patient. After review of previous anaesthesic history and IV conscious sedation the patient was deemed safe to proceed with today?s procedure with IV conscious sedation as ASA class II designation. Safety time-out was performed to confirm patient ID, procedure to be performed and site of procedure. IV sedation was accomplished with a combination of 2mg of Versed was administered by the RN after DO order, titrated to patient comfort during the course of the procedure while the patient remained responsive to all verbal commands In the prone position following sterile prep and drape of the lumbar region, the right L5/S1 posterior neuroforamen was identified fluoroscopically. The skin was anesthetized via a 25-gauge 1.5-inch needle with 1% lidocaine solution. At this point, a 25-gauge 3.5-inch spinal needle was atraumatically introduced and advanced under fluoroscopic guidance through the posterior right L5/S1 neuroforamen to approximately the anterior aspect of the canal. Depth was confirmed on lateral view. Following negative aspiration, injection of approximately 1.5cc of Isovue 200 under live fluoroscopy in the AP view confirmed excellent flow along the nerve root, into the epidural space without vascular or intrathecal uptake observed Radiological data, including multiple fluoroscopic views of the lumbosacral spine, reveal a spinal needle at the right L5/S1 posterior neuroforamen. Subsequent views show flow of contrast material flowing superiorly and inferiorly along the nerve root confirming epidural flow. Subsequently, a test dose of 1.5cc of 0.25% marcaine solution was administered and patient was observed for two minutes for signs or symptoms of complications, including abdominal pain, shortness of breath, bilateral upper or lower extre mity weakness, nausea and vomiting, prior to steroid injection. At this point, a total of 3cc or 10mg of dexamethasone and 12mg of betamethasone was injected without incident. The procedure tolerated the procedure well without signs or symptoms of complications prior to transfer to the recovery area continued monitoring without incident. The patient was then transferred to the recovery area where they were observed for an appropriate time after the injection. The patient reported a VAS score of 7 prior to the procedure and a post- procedure VAS of 0. POST OP INSTRUCTIONS The patient was provided a Pain Log to continue to record their response to the target-specific procedure prior to follow-up visit with their referring physician. Additionally, specific post-injection care instructions and a contact number to our office were provided if concerns arise regarding possible complications associated with the procedure are suspected.
== END 2025-02-28 17:11 | disposition home or self-care (01) ==
PROVIDERS: PCP Family Medicine; Referring Provider Physical Medicine & Rehabilitation; Visit Provider Physical Medicine & Rehabilitation
DX: M48.07 Spinal stenosis, lumbosacral region (principal); M51.17 Intervertebral disc disorders with radiculopathy, lumbosacral region; M47.27 Other spondylosis with radiculopathy, lumbosacral region
CPT/HCPCS: 64483; 99152; J0702; J1100; J2250

== ENCOUNTER → 2025-03-08 09:42 | Outpatient (CLI) | payer MEDICARE, SELFPAY ==
[2025-03-08 11:00] LABS: Add Manual Diff / Slide Review NO; Hematocrit 36.3 % (41-53); Hemoglobin 12.1 g/dL (13.5-17.5); Lymphocytes Absolute Auto 1100 /uL (1100-4500); Mean Corpuscular HGB Conc 33.3 % (30-36); Mean Corpuscular Hemoglobin 27.4 PG (26-34); Mean Corpuscular Volume 82.2 fL (80-100); Platelet Count 187 X10^3/uL (150-400)
[2025-03-08 11:42] LABS: Alanine Aminotransferase 18 IU/L (<50); Albumin 4.0 g/dL (3.5-5.0); Albumin Globulin Ratio 1.6 (1.0-2.8); Alkaline Phosphatase 89 U/L (38-126); Blood Urea Nitrogen 18 mg/dL (9-20); Calcium 9.0 mg/dL (8.4-10.2); Carbon Dioxide 25 mmol/L (22-32); Chloride 104 mmol/L (98-107); Cholesterol 168 mg/dL (140-199); Estimated Glomerular Filt Rate > 60 mL/min (>60); Globulin 2.5 g/dL (1.7-4.1); Glucose 89 mg/dL (70-99); HDL Cholesterol 74 mg/dL (40-60); HEMOLYSIS < 15 (0-50); Potassium 4.2 mmol/L (3.4-5.1); Sodium 136 mmol/L (137-145); Total Protein 6.5 g/dL (6.3-8.2); Triglycerides 77 mg/dL (35-150)
[2025-03-08 12:13] LABS: TSH w/ Reflex to FT4 0.71 uIU/mL (0.47-4.68)
[2025-03-08 14:07] LABS: Microalbumi Creatinin Ratio Ur 7.0 ug/mg CR (<30)
== END ==
PROVIDERS: PCP Family Medicine; Referring Provider Family Medicine; Visit Provider Family Medicine
DX: Z12.5 Encounter for screening for malignant neoplasm of prostate (principal); I77.819 Aortic ectasia, unspecified site; E03.9 Hypothyroidism, unspecified; D64.9 Anemia, unspecified; I42.0 Dilated cardiomyopathy; R80.9 Proteinuria, unspecified; N40.1 Benign prostatic hyperplasia with lower urinary tract symptoms; R35.0 Frequency of micturition; F32.9 Major depressive disorder, single episode, unspecified
CPT/HCPCS: 36415; 80053; 80061; 82043; 82570; 84443; 85025; G0103